=== PATIENT | male | born 2000 | race Two or more races ===

== ENCOUNTER 2022-03-31 11:58 | Emergency (ER) | payer SELFPAY ==
[~2022-03-31] VITALS: Ht 175.3 cm; Wt 83.9 kg
--- NOTE | 2022-03-31 12:08 | NUR ---
BIBS C/O RIB PAIN WHEN TAKING DEEP BREATHS STARTED SUNDAY WORST TODAY P/S 12/02. DENIES ANY TRAUMA. DR BHATT AT BEDSIDE.
[2022-03-31] MEDS ORDERED: KETOROLAC TROMETHAMINE INJ 30 MG/ML VIAL IM ONE (12:30)
[2022-03-31] MEDS ORDERED: KETOROLAC TROMETHAMINE INJ 30 MG/ML VIAL ONE (12:32)
--- NOTE | 2022-03-31 12:33 | NUR ---
X RAY AT BEDSIDE
[2022-03-31] MEDS ORDERED: IBUP-1957 PO (12:49)
--- NOTE | 2022-03-31 13:00 | NUR ---
Patient discharged to home in stable condition. Written and verbal after care instructions given. Patient verbalizes understanding of instruction.
[2022-03-31 13:01] VITALS: BP 132/69
== END 2022-03-31 13:01 | disposition home or self-care (01) ==
LOC: ER 12:07
DX: R09.1 Pleurisy (principal); F17.200 Nicotine dependence, unspecified, uncomplicated
CPT/HCPCS: 99283; 71045; 96372; J1885